=== PATIENT | female | born 1985 | race Caucasian/White ===

== ENCOUNTER 2023-05-25 10:25 | Emergency (ER) | payer BC ==
[~2023-05-25] VITALS: Ht 165.1 cm; Wt 98.9 kg
[2023-05-25] MEDS ORDERED: ONDANSETRON HCL/PF - ER 4 MG/2 ML VIAL IV ONE (11:00)
[2023-05-25] MEDS ORDERED: ONDANSETRON HCL/PF 4 MG/2 ML VIAL ONE (11:00)
[2023-05-25] MEDS ORDERED: IV NS 0.9% 1,000 ML IV ONE (11:00)
[2023-05-25] MEDS: PYRIDOXINE HCL 50 MG TABLET PO SCH ×2 (11:25→11:30)
[2023-05-25] MEDS ORDERED: ONDA4TAB11 PO (12:21)
[2023-05-25 12:31] VITALS: BP 106/50; TEMP 99.1; O2SAT 100
== END 2023-05-25 12:32 | disposition home or self-care (01) ==
LOC: EDBD 10:35 → ER 10:35
DX: O21.0 Mild hyperemesis gravidarum (principal); Z79.899 Other long term (current) drug therapy
CPT/HCPCS: 99283; 96374; 96361; J2405; J7030

== ENCOUNTER 2023-06-07 23:48 | Emergency (ER) | payer BC ==
[~2023-06-07] VITALS: Ht 165.1 cm; Wt 98.0 kg
[~2023-06-07 23:48] MED LIST: ONDA4TAB11 PO
[2023-06-08 00:23] VITALS: TEMP 98.1
[2023-06-08] MEDS ORDERED: ONDANSETRON HCL/PF 4 MG/2 ML VIAL ONE (00:39)
[2023-06-08] MEDS ORDERED: ONDANSETRON HCL/PF 4 MG/2 ML VIAL IVP ONE (01:00)
[2023-06-08] MEDS ORDERED: PYRIDOXINE HCL 50 MG TABLET PO SCH (01:00)
[2023-06-08] MEDS ORDERED: IV NS 0.9% 1,000 ML BAG IV ONE (01:00)
[2023-06-08] MEDS ORDERED: PYRIDOXINE HCL INJ 100 MG/ML VIAL IV ONE (01:30)
[2023-06-08] MEDS ORDERED: ONDA4TAB5 PO (01:40)
[2023-06-08 01:54] VITALS: BP 120/62; O2SAT 98
== END 2023-06-08 01:56 | disposition home or self-care (01) ==
LOC: ER 06-08
DX: O21.0 Mild hyperemesis gravidarum (principal); Z3A.00 Weeks of gestation of pregnancy not specified
CPT/HCPCS: 99283; 96374; 96361; J2405; J7030